=== PATIENT | female | born 2000 | race Two or more races ===

== ENCOUNTER 2022-08-18 22:40 | Emergency (ER) | payer SELFPAY ==
[~2022-08-18] VITALS: Ht 160 cm; Wt 60.0 kg
[2022-08-18 23:08] VITALS: BP 143/79
== END 2022-08-19 03:24 | disposition left against medical advice (07) ==
LOC: ER 22:40 → EDBD 22:40 → ER 08-19 03:24
DX: S00.90XA Unspecified superficial injury of unspecified part of head, initial encounter (principal); I10 Essential (primary) hypertension; Y04.2XXA Assault by strike against or bumped into by another person, initial encounter; Y93.89 Activity, other specified; Y92.89 Other specified places as the place of occurrence of the external cause; Y99.8 Other external cause status
CPT/HCPCS: 70450